=== PATIENT | male | born 1970 | race Caucasian/White ===

== ENCOUNTER 2016-05-25 19:00 | Emergency (ER) | payer BC, OTHER ==
[2016-05-25] MEDS ORDERED: NS 1,000 ML IV ONE ×2 (19:46→20:46)
[2016-05-25] MEDS ORDERED: ONDANSETRON 4 MG/2 ML VIAL IVP ONE ×2 (19:46→21:07)
[2016-05-25] MEDS ORDERED: ALBUTEROL INH PREPACK MDI TAKEHOME ONE (19:47)
--- NOTE | 2016-05-25 19:52 | UCPHY ---
H & P Patient Type: Established Chief Complaint Nursing Narrative: 48 hours n/v. NO DIARRHEA, NO FEVERS, NO URI SYMPTONS. Time Seen by Provider: 05/25/16 19:33 HPI/ROS: This patient presents with a chief complaint of persistent vomiting which began 2 days ago. He estimates he is vomited 15 times today although there has been minimal production of fluid since he has been able to eat or drink appropriately. He has generalized abdominal pain which is more mostly in the left side of the abdomen. He has had no diarrhea in believes he had a small stool this morning and 1 2 days ago when symptoms began. The pain is abdomen does not radiate. It seems to improve after vomiting. He denies fever. His son was ill 2 days before his symptoms began and his son's illness lasted 2 or 3 days. In addition to the above the patient believes that he is beginning to have an asthma attack although he has had no actual shortness of breath cough or chest pain. Yesterday his primary care physician phone in a prescription for Zofran which helped initially but symptoms seem to be worse again today REVIEW OF SYSTEMS: Constitutional: No fever, feels dehydrated and weak Eyes: No complaints ENT: Denies nasal congestion, sore throat and ear pain. 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 In the past he has been treated with a statin and also metformin neither which she is currently taking Source: Patient, RN notes reviewed Exam Limitations: No limitations - Personal History Current Tetanus/Diphtheria Vaccine: Yes Tetanus Vaccine Date: WITHIN 10 YRS - Medical/Surgical History Hx Asthma: Yes Hx Chronic Respiratory Disease: No Hx Diabetes: Yes Hx Cardiac Disease: No Hx Renal Disease: No Hx Cirrhosis: No Hx Alcoholism: No Hx HIV/AIDS: No Hx Splenectomy or Spleen Trauma: Yes Other PMH: TYPE 2 DIABETES - Family History Significant Family History: No pertinent family hx - Social History Smoking Status: Current some day smoker - Physical Exam Exam: This is a well-developed well-nourished male who does appear to be acutely ill but not toxic. GENERAL: Well-appearing, well-nourished and in no mild discomfort HEAD: Atraumatic, normocephalic. EYES: Pupils equal round and reactive to light, extraocular movements intact, sclera anicteric, conjunctiva are normal. ENT: TMs normal, nares patent, oropharynx clear without exudates. Mucous membranes are slightly dry NECK: Normal range of motion, supple without lymphadenopathy or JVD. LUNGS: Breath sounds clear to auscultation bilaterally and equal. No wheezes rales or rhonchi. HEART: Regular rate and rhythm without murmurs, rubs or gallops. ABDOMEN: Soft, the abdomen is soft primarily in the left paraumbilical area without guarding or rebound. Bowel sounds are slightly increased. There is no obvious distention. There is a large sub chondral surgical incision on the left which the patient says is secondary to hiatal hernia repair and also splenectomy. NEUROLOGICAL: Cranial nerves II through XII grossly intact. Normal speech, normal gait. PSYCH: Normal mood, normal affect. SKIN: Warm, dry, normal turgor, no visible rashes or lesions. Constitutional: Initial Vital Signs Temperature (C) 36.5 C 05/25/16 19:12 Heart Rate 64 05/25/16 19:12 Respiratory Rate 22 H 05/25/16 19:12 Blood Pressure 119/80 05/25/16 19:12 O2 Sat (%) 99 05/25/16 19:12 O2 Delivery Mode Room Air Allergies/Adverse Reactions: Penicillins Allergy (Unknown, Verified 11/19/13 22:28) CATS Allergy (Severe, Uncoded 11/19/13 22:28) ASTHMA HORSES Allergy (Severe, Uncoded 11/19/13 22:28) EYES SWELLING ANIMAL HAIR DOGS Allergy (Mild, Uncoded 11/19/13 22:28) SNEEZING Home Medications: Medication Instructions Recorded NK [No Known Home Meds] 05/25/16 Medical Decision Making - Diagnostics Imaging: X-rays of the chest and abdomen are nondiagnostic. ED Course/Re-evaluation: An IV was started the patient was hydrated with 2 L of normal saline and given 4 mg of Zofran intravenously which was repeated. He was also given 10 mg of Reglan intravenously. On discharge she was feeling improved. Differential Diagnosis: I find nothing that would suggest that this patient's symptoms are related to a serious medical problem specifically any significant intra-abdominal pathology including bowel obstruction, pancreatitis, appendicitis, bowel perforation or mesenteric ischemia. This illness is probably related to the 1 that his son had earlier week. - Data Points Laboratory Results: Laboratory Results 05/25/16 19:55 05/25/16 19:55 05/25/16 19:55 WBC 13.56 H 10^3/uL (3.80-9.50) RBC 6.10 10^6/uL (4.40-6.38) Hgb 18.8 H g/dL (13.7-17.5) Hct 53.4 H % (40.0-51.0) MCV 87.5 fL (81.5-99.8) MCH 30.8 pg (27.9-34.1) MCHC 35.2 g/dL (32.4-36.7) RDW 12.9 % (11.5-15.2) Plt Count 327 10^3/uL (150-400) MPV 10.4 fL (8.7-11.7) Neut % (Auto) 74.3 H % (39.3-74.2) Lymph % (Auto) 16.6 % (15.0-45.0) [place] % (Auto) 8.0 % (4.5-13.0) Eos % (Auto) 0.1 L % (0.6-7.6) Baso % (Auto) 0.6 % (0.3-1.7) Nucleat RBC Rel Count 0.0 % (0.0-0.2) Absolute Neuts (auto) 10.07 H 10^3/uL (1.70-6.50) Absolute Lymphs (auto) 2.25 10^3/uL (1.00-3.00) Absolute Monos (auto) 1.08 H 10^3/uL (0.30-0.80) Absolute Eos (auto) 0.02 L 10^3/uL (0.03-0.40) Absolute Basos (auto) 0.08 10^3/uL (0.02-0.10) Absolute Nucleated RBC 0.00 10^3/uL (0-0.01) Immature Gran % 0.4 % (0.0-1.1) Immature Gran # 0.06 10^3/uL (0.00-0.10) Sodium 136 mEq/L (134-144) Potassium 3.8 mEq/L (3.5-5.2) Chloride 98 mEq/L (97-110) Carbon Dioxide 25 mEq/l (22-31) Anion Gap 13 mEq/L (8-16) BUN 15 mg/dL (7-23) Creatinine 0.9 mg/dL (0.7-1.3) Estimated GFR > 60 Glucose 154 H mg/dL (70-100) Calcium 9.6 mg/dL (8.5-10.4) Total Bilirubin 1.1 mg/dL (0.1-1.4) AST 47 IU/L (17-59) ALT 69 IU/L (21-72) Alkaline Phosphatase 88 IU/L (38-126) Total Protein 7.7 g/dL (6.3-8.2) Albumin 4.3 g/dL (3.5-5.0) Lipase 139.0 IU/L (23-300) Medications Given: Discontinued Medications Albuterol Sulfate (Proventil Inh Prepack) 1 mdi TAKEHOME EDNOW ONE Stop: 05/25/16 19:48 Last Admin: 05/25/16 19:56 Dose: 1 mdi Sodium Chloride (Ns) 1,000 mls @ 0 mls/hr IV ONCE ONE PRN Reason: As Directed Stop: 05/25/16 19:47 Last Admin: 05/25/16 19:57 Dose: 1,000 mls Sodium Chloride (Ns) 1,000 mls @ 0 mls/hr IV ONCE ONE PRN Reason: Wide Open Stop: 05/25/16 20:47 Last Admin: 05/25/16 20:49 Dose: 1,000 mls Metoclopramide HCl (Reglan Injection) 10 mg IVP EDNOW ONE Stop: 05/25/16 21:21 Last Admin: 05/25/16 21:26 Dose: 10 mg Ondansetron HCl (Zofran) 4 mg IVP EDNOW ONE Stop: 05/25/16 19:47 Last Admin: 05/25/16 19:59 Dose: 4 mg Ondansetron HCl (Zofran) 4 mg IVP EDNOW ONE Stop: 05/25/16 21:08 Last Admin: 05/25/16 21:00 Dose: 4 mg Departure - Departure Disposition: Home, Routine, Self-Care Clinical Impression: Persistent vomiting Instructions: Acute Nausea and Vomiting (ED), Dehydration (ED), Acute Abdominal Pain (ED) Additional Instructions: If the vomiting persists tomorrow you should return. It is important that you not get dehydrated again. Do not attempt to eat any solids until this illness has passed. Causes for concern for increasing abdominal pain and uncontrollable vomiting. If either of these occur return. It is safe to take 2 Zofran every 4 hours to control your nausea and vomiting however you should not take more. Referrals: Alcides Goddard MD [Primary Care Provider] - As per Instructions - PQRS PQRS Measurement: Not applicable
[2016-05-25 20:01] LABS: % IMMATURE GRANULYOCYTES 0.4 % (0.0-1.1); ABSOLUTE IMMATURE GRANULOCYTES 0.06 10^3/uL (0.00-0.10); ADD DIFF? NO; ADD MORPH? NO; ADD SCAN? NO; ATYPICAL LYMPHOCYTE FLAG 0 (0-99); FRAGMENT RBC FLAG 0 (0-99); HEMATOCRIT 53.4 % (40.0-51.0); HEMOGLOBIN 18.8 g/dL (13.7-17.5); LEFT SHIFT FLG 0 (0-99); LIPEMIA HEMOLYSIS FLAG 90 (0-99); MEAN CELL HEMOGLOBIN 30.8 pg (27.9-34.1); MEAN CELL HEMOGLOBIN CONCENTR. 35.2 g/dL (32.4-36.7); MEAN CELL VOLUME 87.5 fL (81.5-99.8); MEAN PLATELET VOLUME 10.4 fL (8.7-11.7); PLATELET CLUMPS FLAG 0 (0-99); PLATELET COUNT 327 10^3/uL (150-400); RED CELL DISTRIBUTION WIDTH 12.9 % (11.5-15.2)
[2016-05-25] MEDS ORDERED: ONDANSETRON 4 MG/2 ML VIAL ONE (20:02)
[2016-05-25 20:16] LABS: ALANINE AMINOTRANSFERASE 69 IU/L (21-72); ALBUMIN 4.3 g/dL (3.5-5.0); ALKALINE PHOSPHATASE 88 IU/L (38-126); ANION GAP 13 mEq/L (8-16); ASPARTATE AMINOTRANSFERASE 47 IU/L (17-59); BILIRUBIN,TOTAL 1.1 mg/dL (0.1-1.4); CALCIUM 9.6 mg/dL (8.5-10.4); CARBON DIOXIDE 25 mEq/l (22-31); CHLORIDE 98 mEq/L (97-110); CREATININE 0.9 mg/dL (0.7-1.3); GLOMERULAR FILTRATION RATE > 60; GLUCOSE 154 mg/dL (70-100); POTASSIUM 3.8 mEq/L (3.5-5.2); SODIUM 136 mEq/L (134-144); TOTAL PROTEIN 7.7 g/dL (6.3-8.2)
--- NOTE | 2016-05-25 20:38 | DX ---
PA and Lateral Chest X-ray 2007 hours History: Shortness of breath. Findings: Heart size and pulmonary vasculature are normal. The lungs are clear without infiltrates or effusions. There is no pneumothorax. The osseous structures are intact. Impression: Normal chest x-ray.
--- NOTE | 2016-05-25 20:39 | DX ---
Two-view abdomen series 2010 hours. History: Persistent vomiting and abdominal pain. Rule out obstruction. Findings: There are no significantly dilated loops of bowel. No air-fluid levels are seen or free air . No masses are evident or significant calcifications. Mild degenerative changes are noted of the low er lumbar spine as well as mild to moderate hip joint space narrowing bilaterally. Impression: 1. No significant abnormality within the abdomen. 2. Degenerative changes lower lumbar spine and hips.
[2016-05-25] MEDS ORDERED: METOCLOPRAMIDE 10 MG/2 ML VIAL IVP ONE (21:20)
[2016-05-25 21:38] VITALS: BP 116/68; PULSE 68; RESP 18; TEMP 97.9; O2SAT 94
== END 2016-05-25 22:13 | disposition home or self-care (01) ==
LOC: CED 19:00
DX: R11.10 Vomiting, unspecified (principal); E86.0 Dehydration; R10.9 Unspecified abdominal pain; R51 Headache; E11.9 Type 2 diabetes mellitus without complications; Z72.0 Tobacco use
CPT/HCPCS: 71020-PO; 74020-PO; 80053-PO; 83690-PO; 85025-PO; 96360-PO; 96361-PO; 96374-PO; 96375-PO; 96376-PO; 99215-PO; G0463-PO; J2405; J2765

== ENCOUNTER 2016-12-29 10:10 | Emergency (ER) | payer OTHER ==
[2016-12-29] MEDS ORDERED: LET GEL TOPICAL 1 EA SYR TP ONE (10:22)
[2016-12-29] MEDS ORDERED: TDAP ADULT 0.5 ML INJ (BOOSTRIX) IM ONE (10:24)
--- NOTE | 2016-12-29 10:31 | EDPHY ---
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 He reports moderate pain and moderate bleeding that slowed with direct pressure. He denies any other associated symptoms. He is accompanied by his who drove him here by private vehicle for evaluation. ROS: Neuro: No numbness or tingling to the affected hand. HEENT: Patient complains of right eye redness and yellow crusty discharge with eyelash matting over the past 5 days. His son had a similar ailment that resolved with antibiotic drops. No URI symptoms. No left eye symptoms. No noted change in vision. No pain in the eye. Musculoskeletal: No bony pain and difficulty moving thumb or index finger. 5 point ROS is otherwise negative. Past Medical/Surgical History: Thinks that he is due for tetanus-last tetanus more than 10 years ago. Smoking Status: Current some day smoker Physical Exam: Physical Exam Vital signs are normal. General: No acute distress HEENT: Patient has conjunctival injection to the right eye with no active discharge at this time. Lids and lashes are normal. Left eye exam is normal. Pupils are equal react to light extraocular motions are intact. Nose is clear. No skin lesions on the face Cardiac: Brisk capillary refill is intact throughout. Pulses are 2+ and symmetric in the affected extremity. Skin: No rash or pallor. Extremities: Atraumatic normal except for left hand Left hand: Patient has 2.2 cm full-thickness laceration the 1st was space with moderate bleeding with a small arteriole spurter. There is a minor laceration of the adductor muscle but is well approximated and comprises only small percentage of muscle belly. No foreign bodies on direct exam. Neuro: Alert and oriented x3 with no sensorimotor deficits. initial differential diagnosis: Bacterial conjunctivitis versus viral conjunctivitis, hand laceration Constitutional: Initial Vital Signs Temperature (C) 36.4 C 12/29/16 10:13 Heart Rate 68 12/29/16 10:13 Respiratory Rate 20 12/29/16 10:13 Blood Pressure 113/76 12/29/16 10:13 O2 Sat (%) 91 L 12/29/16 10:13 Allergies/Adverse Reactions: Penicillins Allergy (Unknown, Verified 12/29/16 10:20) CATS Allergy (Severe, Uncoded 11/19/13 22:28) ASTHMA HORSES Allergy (Severe, Uncoded 11/19/13 22:28) EYES SWELLING ANIMAL HAIR DOGS Allergy (Mild, Uncoded 11/19/13 22:28) SNEEZING Home Medications: Medication Instructions Recorded Ofloxacin 0.3% [Ocuflox 0.3% (RX)] 2 drops EACHEYE Q1 #1 btl 12/29/16 traMADol [Ultram 50 mg (*)] 50 - 100 mg PO Q4 PRN #12 tab 12/29/16 MDM/Departure - MDM Procedures: The wound is 2.2 [id number], small arterial bleeder controlled with direct pressure.. The wound was copiously irrigated with saline. The wound was explored for foreign bodies and none were found. The wound was prepped and draped in the normal sterile fashion. The wound was anesthetized using let solution followed by 1% plain lidocaine mixed 50 50 with 0.5% Marcaine, 27 gauge needle-4 mL with good effect. The edges were reapproximated using 4 0 Prolene on a PC 3 needle-8 running sutures with good hemostasis and cosmesis. The patient tolerated the procedure well. There were no complications. A dressing is placed in an Navi wrap is also placed for pressure due to the bleeding with the wound to help prevent hematoma. Medications Given: Discontinued Medications Diphtheria/Tetanus/Acell Pertussis (Boostrix) 0.5 ml IM .ONCE ONE Stop: 12/29/16 10:25 Last Admin: 12/29/16 10:27 Dose: 0.5 ml Tetracaine/Epinephrine/Lidocaine (Let Gel Topical) 1 ea TP EDNOW ONE Stop: 12/29/16 10:23 Last Admin: 12/29/16 10:26 Dose: 1 ea ED Course/Re-evaluation: patient here with 2 different problems -conjunctivitis that is likely bacterial to the right eye and hand laceration. The arterial spur resolved with direct pressure with suturing with no significant bleeding thereafter. We did apply pressure dressing given this finding on exam. He describes an achy pain in the hand as well as think is attributable to the muscle injury. Will provide a small amount of tramadol for pain control in addition to ibuprofen and Tylenol. I counseled him regarding conjunctivitis and his hand laceration. - Depart Disposition: Home, Routine, Self-Care Clinical Impression: Hand laceration Qualifiers: Encounter type: initial encounter Foreign body presence: without foreign body Laterality: left Qualified Code(s): S61.412A - Laceration without foreign body of left hand, initial encounter Conjunctivitis Qualifiers: Conjunctivitis type: acute Acute conjunctivitis type: bacterial Laterality: right Qualified Code(s): H10.31 - Unspecified acute conjunctivitis, right eye Condition: Good Instructions: Care For Your Stitches (ED), Conjunctivitis (ED) Additional Instructions: Diagnoses: 1. Hand laceration 2. Conjunctivitis Plan: Keep the wound clean and dry for the next 2 days. Then removed the dressing clean daily with warm soapy water Ice to the hand 20 minutes at a time to 3 times a day for the next few days. Elevate the hand whenever possible Ibuprofen for pain. Tylenol and tramadol in addition if needed. No driving, alcohol work on tramadol. For your conjunctivitis-antibiotic drops as prescribed., wash hands frequently Return for suture removal in 10-12 days return sooner if he develops redness, discharge or other concerns for infection have worsening of her eye despite the treatment plan. Prescriptions: Ofloxacin 0.3% [Ocuflox 0.3% (RX)] 2 drops EACHEYE Q1 #1 btl traMADol [Ultram 50 mg (*)] 50 - 100 mg PO Q4 PRN #12 tab PRN Reason: breakthrough pain Referrals: Alcides Goddard MD [Primary Care Provider] - As per Instructions
[2016-12-29 10:57] VITALS: RESP 20
[2016-12-29 11:47] VITALS: BP 128/88; PULSE 63; TEMP 98.1; O2SAT 92
== END 2016-12-29 11:45 | disposition home or self-care (01) ==
LOC: CED 10:10
PROC: 0HQGXZZ Repair Left Hand Skin, External Approach (ICD-10-PCS; principal; 2016-12-29)
DX: S61.412A Laceration without foreign body of left hand, initial encounter (principal); H10.31 Unspecified acute conjunctivitis, right eye; F17.200 Nicotine dependence, unspecified, uncomplicated; Z23 Encounter for immunization; W26.0XXA Contact with knife, initial encounter